=== PATIENT | female | born 1975 | race African-American/Black ===

== ENCOUNTER 2024-04-25 20:56 | Emergency (ER) | payer MEDICAID ==
[~2024-04-25] VITALS: Ht 162.6 cm; Wt 77.5 kg
[2024-04-25 20:58] VITALS: O2SAT 100
[2024-04-25 21:07] VITALS: BP 137/80; PULSE 98; RESP 16; TEMP 98.9; O2SAT 99
[2024-04-25] MEDS ORDERED: IBUPROFEN 800MG TABLET PO ONE (23:00)
[2024-04-25] MEDS: KETOROLAC 30MG/ML VIAL IM ONE (23:30)
[2024-04-26] MEDS ORDERED: IBUP-2028 MT (00:12)
== END 2024-04-26 00:26 | disposition left against medical advice (07) ==
LOC: ER 20:56
DX: G44.309 Post-traumatic headache, unspecified, not intractable (principal); M54.2 Cervicalgia; M25.512 Pain in left shoulder; I10 Essential (primary) hypertension
CPT/HCPCS: 99285; 70450; 72125; 96372; J1885